=== PATIENT | male | born 1960 | race Two or more races ===

== ENCOUNTER 2020-03-01 08:51 | Inpatient (IN) | payer MEDICAID, OTHER ==
[~2020-03-01] VITALS: Ht 167.6 cm; Wt 91.7 kg
[2020-03-01 09:12] LABS: Basophils # (auto) 0 10 ^3/uL (0-0.2); Basophils % (auto) 0.7 % (0.0-2.0); Eosinophils # (auto) 0.2 10 ^3/uL (0-0.8); Eosinophils % (auto) 2.5 % (0.0-7.0); Hematocrit 34.7 % (41.0-53.0); Hemoglobin 11.6 g/dL (13.5-17.5); Lymphocytes # (auto) 1.2 10 ^3/uL (0.4-5.4); Lymphocytes % (auto) 18.8 % (10.0-50.0); Mean Corpuscular Hemoglobin 28.2 pg (28.0-32.0); Mean Corpuscular Hgb Conc. 33.5 g/dL (32.0-36.0); Mean Corpuscular Volume 84.2 fL (80.0-100.0); Monocytes # (auto) 0.6 10 ^3/uL (0-1.3); Monocytes % (auto) 8.7 % (0.0-12.0); Neutrophils # (auto) 4.5 10 ^3/uL (1.6-8.6); Neutrophils % (auto) 69.3 % (37.0-80.0); Nucleated Red Blood Cells % 0.1 %; Platelet Count (auto) 301 10^3/uL (140-450); Red Blood Cells 4.12 10^6/uL (4.5-5.90); Red Cell Distribution Width 14.3 % (11.8-14.3); White Blood Cell 6.5 10^3/uL (4.4-10.8)
[2020-03-01 09:30] LABS: Albumin 2.7 g/dL (3.4-5.0); Anion Gap 5 (5-15); Blood Urea Nitrogen 24 mg/dL (7-18); Calcium 8.5 mg/dL (8.5-10.1); Carbon Dioxide 24 mmol/L (21-32); Chloride 112 mmol/L (98-107); Glucose 153 mg/dL (74-106); Sodium 141 mmol/L (136-145)
[2020-03-01 09:36] LABS: Alanine Aminotransferase 23 U/L (16-61); Alkaline Phosphatase 103 U/L (45-117); Aspartate Aminotransferase 18 U/L (15-37); BUN/Creatinine Ratio 14.5; Bilirubin, Total 0.3 mg/dL (0.2-1.0); GFR African American 55 mL/min; GFR Non-African American 45 mL/min; Total Protein 6.7 g/dL (6.4-8.2)
[2020-03-01] MEDS ORDERED: cloNIDine HCL 0.1 MG TAB PO ONE (10:00)
[2020-03-01] MEDS ORDERED: LABETALOL HCL 5 MG/ML ML 20ML VIAL IV ONE (10:28)
[2020-03-01] MEDS ORDERED: LABETALOL HCL 5 MG/ML 4ML SYRINGE IV ONE (10:30)
[2020-03-01] MEDS ORDERED: NITROGLYCERIN 0.4 MG SL TAB SL PRN ×3 (12:45→14:00)
[2020-03-01] MEDS ORDERED: MORPHINE SULF INJ 2 MG/ML SYRINGE 1ML IV PRN ×3 (12:45→14:00)
[2020-03-01] MEDS ORDERED: HYDROcodone-ACET 5/325MG TAB PO PRN (14:00)
[2020-03-01] MEDS ORDERED: ALUM & MAG HYDROX-SIMETH LIQ(MAALOX) 30 ML PO PRN (14:00)
[2020-03-01] MEDS ORDERED: ONDANSETRON HCL 4 MG/2 ML VIAL IV PRN (14:00)
[2020-03-01] MEDS ORDERED: DOCUSATE SOD 100 MG CAP PO PRN (14:00)
[2020-03-01] MEDS ORDERED: LORazepam 0.5 MG TAB PO PRN (14:00)
[2020-03-01] MEDS ORDERED: ACETAMINOPHEN 325 MG TAB PO PRN (14:00)
[2020-03-01] MEDS: SODIUM CHLOR 0.9% PF (SALINE LOCK) 10ML VIAL/SYR IV SCH ×2 (14:22→22:00)
[2020-03-01] MEDS ORDERED: LORA1TAB23 PO (14:25)
[2020-03-01] MEDS ORDERED: MET50T PO (14:25)
[2020-03-01] MEDS ORDERED: GABA100C9 PO (14:25)
[2020-03-01] MEDS ORDERED: LEVE500T22 PO (14:25)
[2020-03-01] MEDS ORDERED: INSREG3 SC (14:25)
[2020-03-01] MEDS ORDERED: POTA1TAB61 PO (14:25)
[2020-03-01] MEDS ORDERED: HYDR50TA15 PO (14:25)
[2020-03-01] MEDS ORDERED: LISI40TA PO (14:25)
[2020-03-01] MEDS ORDERED: CLOP75TA41 PO (14:25)
[2020-03-01] MEDS ORDERED: NIFE90TA49 PO (14:25)
[2020-03-01] MEDS ORDERED: TAMS0.4C36 PO (14:25)
[2020-03-01] MEDS ORDERED: ATOR1TAB PO (14:25)
[2020-03-01] MEDS ORDERED: levETIRAcetam 500 MG TAB PO ONE (14:30)
[2020-03-01] MEDS ORDERED: DEXTROSE (50%) 50ML SYRG IV PRN (15:00)
[2020-03-01] MEDS: cefTRIAXone 1GM/50ML D5W 50 ML IV SCH (15:04)
[2020-03-01] MEDS: CLINDAMYCIN 600MG IV 50 ML IV SCH ×2 (15:30→22:00)
[2020-03-01 16:06] LABS: Urine Bacteria NONE SEEN /hpf (None Seen); Urine Blood 1+ /uL (Negative); Urine Mucus FEW (None Seen); Urine Specific Gravity 1.019 (1.001-1.035); Urine Sperm PRESENT /hpf (None Seen); Urine WBC 4 /hpf (0 - 3)
--- NOTE | 2020-03-01 16:57 | NUR ---
SWALLOW EVALUATED. PATIENT HAS NATURAL TEETH UPPER AND LOWER. ABLE TO FOLLOW COMMANDS. PATIENT ABLE TO TOLERATE MECHANICAL SOFT DIET TEXTURE WITH THIN LIQUIDS WITH NO OVERT SIGNS OR SYMPTOMS OF ASPIRATION. NURSING NOTIFIED.
[2020-03-01] MEDS: InsuLIN REG 1unit/0.01ml Soln (100units/ml) SC SCH ×2 (17:05→22:00)
[2020-03-01] MEDS: ACCU-CHEK COMFORT CURVE STRIP VI SCH ×2 (17:06→22:00)
[2020-03-01 17:57] VITALS: BP 191/100
[2020-03-01 18:30] VITALS: BP 191/100
[2020-03-01] MEDS: hydrALAZINE HCL 20 MG/ML VL IV SCH (18:35)
[2020-03-01 19:05] VITALS: BP 150/90
[2020-03-01 19:36] LABS: Partial Thromboplastin Time 26.2 sec (23.64-32.05)
[2020-03-01 19:46] LABS: Cholesterol 162 mg/dL (< 200); HDL Cholesterol 34 mg/dL (40-59); LDL Cholesterol 106 mg/dL (< 100); Phosphorus 4.9 mg/dL (2.5-4.90); Triglycerides 175 mg/dL (< 150)
[2020-03-01 20:00] VITALS: BP 159/90
--- NOTE | 2020-03-01 20:00 | NUR ---
Opening Shift Note Assumed care of patient, awake, AAOx3, reoriented to time. No S/S of distress/SOB or pain. On room air and bedrest. Nobles catheter patent and draining to gravity. Bed in lowest locked position, side rails up x2, call light within reach. Instructed on POC and to call for assist PRN, will continue to monitor for changes Q1hr and PRN.
[2020-03-01] MEDS ORDERED: LORazepam 2MG/ML-1ML VIAL IV PRN (21:15)
[2020-03-01 22:00] VITALS: BP 159/90
[2020-03-01] MEDS: ATORVASTATIN 20 MG TAB PO SCH (22:00)
[2020-03-01] MEDS: METOPROLOL TARTRATE 25 MG TAB PO SCH (22:00)
[2020-03-01] MEDS ORDERED: CARVEDILOL 3.125 MG TAB PO SCH (22:00)
[2020-03-01] MEDS: GABAPENTIN 300 MG CAP PO SCH (22:00)
[2020-03-01] MEDS: levETIRAcetam 500 MG TAB PO SCH (22:00)
[2020-03-02] VITALS (7 sets, daily range): BP systolic 148–193; BP diastolic 77–97
[2020-03-02] MEDS: SODIUM CHLOR 0.9% PF (SALINE LOCK) 10ML VIAL/SYR IV SCH ×3 (05:44→22:29)
[2020-03-02] MEDS: ACCU-CHEK COMFORT CURVE STRIP VI SCH ×4 (05:44→22:29)
[2020-03-02] MEDS: InsuLIN REG 1unit/0.01ml Soln (100units/ml) SC SCH ×4 (05:44→22:33)
[2020-03-02] MEDS: hydrALAZINE HCL 20 MG/ML VL IV SCH ×3 (05:44→12:13)
[2020-03-02] MEDS: GABAPENTIN 300 MG CAP PO SCH ×3 (05:44→22:28)
[2020-03-02] MEDS: CLINDAMYCIN 600MG IV 50 ML IV SCH ×2 (05:44→14:24)
--- NOTE | 2020-03-02 08:06 | NUR ---
OPENING SHIFT NOTE Assumed care of patient. Patient alert and orientated. No sob or distress noted. POC reviewed with pt and verbalized understanding. Bed locked in lowest position. Side rails up x2. Will continue to monitor.
[2020-03-02] MEDS: LOSARTAN POTASSIUM 50 MG TAB PO SCH (10:25)
[2020-03-02] MEDS: METOPROLOL TARTRATE 25 MG TAB PO SCH ×2 (10:26→22:28)
[2020-03-02] MEDS: CLOPIDOGREL BISULFATE 75 MG TAB PO SCH (10:28)
[2020-03-02] MEDS: levETIRAcetam 500 MG TAB PO SCH ×2 (10:29→22:29)
[2020-03-02] MEDS: ENOXAPARIN SOD 40 MG/0.4 ML SYRINGE SC SCH (10:29)
[2020-03-02] MEDS: ASPirin 81 mg TAB PO SCH (10:29)
[2020-03-02] MEDS: cefTRIAXone 1GM/50ML D5W 50 ML IV SCH (10:30)
[2020-03-02] MEDS: CITALOPRAM HYDROBR 20 MG TAB PO SCH (10:30)
[2020-03-02] MEDS ORDERED: NIFEdipine ER 30 MG TAB PO ONE (14:30)
[2020-03-02] MEDS: hydrALAZINE HCL 25 MG TAB PO SCH (18:21)
[2020-03-02] MEDS: ATORVASTATIN 20 MG TAB PO SCH (22:28)
--- NOTE | 2020-03-03 03:40 | NUR ---
ASSUMED CARE ASSUMED CARE OF PATIENT FROM WILL, RN. PATIENT ASLEEP, EVEN UNLABORED RESPIRATIONS. NO S/S OF DISTRESS, SOB OR PAIN NOTED. BED IN LOWEST/LOCKED POSITION, BED RAILS UP X2, CALL LIGHT WITHIN REACH. WILL CONTINUE TO MONITOR
[2020-03-03 05:00] VITALS: BP 130/71
[2020-03-03 05:17] LABS: Potassium 3.9 mmol/L (3.5-5.1)
[2020-03-03 05:21] LABS: BUN/Creatinine Ratio 16.9; Calcium 8.3 mg/dL (8.5-10.1)
[2020-03-03] MEDS: GABAPENTIN 300 MG CAP PO SCH ×2 (05:57→13:23)
[2020-03-03] MEDS: hydrALAZINE HCL 25 MG TAB PO SCH ×3 (05:57→13:21)
[2020-03-03] MEDS: SODIUM CHLOR 0.9% PF (SALINE LOCK) 10ML VIAL/SYR IV SCH ×2 (05:57→13:23)
[2020-03-03] MEDS: InsuLIN REG 1unit/0.01ml Soln (100units/ml) SC SCH ×2 (06:10→11:30)
[2020-03-03] MEDS: ACCU-CHEK COMFORT CURVE STRIP VI SCH ×2 (06:10→11:37)
[2020-03-03 09:00] VITALS: BP 134/74
[2020-03-03] MEDS ORDERED: MIDAZOLAM HCL 1MG/1ML-2 ML VIAL IV ONE (09:45)
[2020-03-03] MEDS ORDERED: NIFEdipine ER 30 MG TAB PO SCH (10:00)
[2020-03-03] MEDS: ENOXAPARIN SOD 40 MG/0.4 ML SYRINGE SC SCH (11:22)
[2020-03-03] MEDS: METOPROLOL TARTRATE 25 MG TAB PO SCH (11:23)
[2020-03-03] MEDS: CLOPIDOGREL BISULFATE 75 MG TAB PO SCH (11:23)
[2020-03-03] MEDS: ASPirin 81 mg TAB PO SCH (11:24)
[2020-03-03] MEDS: LOSARTAN POTASSIUM 50 MG TAB PO SCH (11:24)
[2020-03-03] MEDS: levETIRAcetam 500 MG TAB PO SCH (11:25)
[2020-03-03] MEDS: CITALOPRAM HYDROBR 20 MG TAB PO SCH (11:25)
[2020-03-03 13:00] VITALS: BP_SYST 140; BP_SYST 145; BP_DIAS 64; BP_DIAS 82
--- NOTE | 2020-03-03 16:22 | NUR ---
assessment Patient is a 60 year old male who is alert and oriented. Prior to admission patient lived home with his Lavern and family. Per Lavern patient has a fww and a wheelchair for home use. Patients PCP is Dr Garcia. Patient will return home with family on discharge and Maira will transport him home. I informed Mercedes patient has a ss consult to resume home health. Per Mercedes patient is on service with [facility]. MD order has been [facility]. Per Dana service will resume 03/04/2020. Danny MAURER has been notified as well as Lavern. Lavern verbalized understanding and agreed to discharge plan home. Addendum: 03/03/20 at 1627 by Saray VILLA Amended: Links added.
[2020-03-03 16:58] VITALS: BP 145/64
[2020-03-03 17:00] VITALS: BP 149/57
--- NOTE | 2020-03-03 19:16 | NUR ---
Patient Discharged The patient received the order to be discharged. Prepared him for discharge. Use the translation phone to explain things. Gathered and finalized paperwork, reviewed it with the patient who then signed the discharge paperwork. Escorted the patient out via wheel chair at 1815hrs.
--- NOTE | 2020-03-04 15:02 | NUR ---
re-assessment Per Rachael at [facility] case management auth for Ana Hicks is [id number]. Ana Hicks has been notified. Addendum: 03/04/20 at 1503 by Saray VILLA Amended: Links added.
== END 2020-03-03 18:15 | disposition home health service (06) | DRG 45 ==
LOC: EDBD 08:51 → ER 08:51 → TELE 08:52 → TELE-WESTW 18:16
PROVIDERS: ADMIT Hospitalist; ATTEND Internal Medicine
PROC: B24BZZ4 Ultrasonography of Heart with Aorta, Transesophageal (ICD-10-PCS; principal; 2020-03-03)
DX: I63.81 Other cerebral infarction due to occlusion or stenosis of small artery (principal); F80.2 Mixed receptive-expressive language disorder; F01.50 Vascular dementia, unspecified severity, without behavioral disturbance, psychotic disturbance, mood disturbance, and anxiety; E43 Unspecified severe protein-calorie malnutrition; N40.0 Benign prostatic hyperplasia without lower urinary tract symptoms; E78.5 Hyperlipidemia, unspecified; N18.3 Chronic kidney disease, stage 3 (moderate); E11.319 Type 2 diabetes mellitus with unspecified diabetic retinopathy without macular edema; E11.22 Type 2 diabetes mellitus with diabetic chronic kidney disease; E11.40 Type 2 diabetes mellitus with diabetic neuropathy, unspecified; H54.8 Legal blindness, as defined in USA; I12.9 Hypertensive chronic kidney disease with stage 1 through stage 4 chronic kidney disease, or unspecified chronic kidney disease; G40.909 Epilepsy, unspecified, not intractable, without status epilepticus; F02.80 Dementia in other diseases classified elsewhere, unspecified severity, without behavioral disturbance, psychotic disturbance, mood disturbance, and anxiety; G30.9 Alzheimer's disease, unspecified; I16.1 Hypertensive emergency; I69.354 Hemiplegia and hemiparesis following cerebral infarction affecting left non-dominant side; N17.0 Acute kidney failure with tubular necrosis; I67.4 Hypertensive encephalopathy; J34.1 Cyst and mucocele of nose and nasal sinus; R32 Unspecified urinary incontinence; Z79.02 Long term (current) use of antithrombotics/antiplatelets; Z79.82 Long term (current) use of aspirin; Z79.899 Other long term (current) drug therapy; Z82.49 Family history of ischemic heart disease and other diseases of the circulatory system; Z89.611 Acquired absence of right leg above knee; Z89.511 Acquired absence of right leg below knee; I25.2 Old myocardial infarction; D50.0 Iron deficiency anemia secondary to blood loss (chronic); D63.1 Anemia in chronic kidney disease
CPT/HCPCS: 36415; 70450; 70551; 71045; 80048; 80053; 80061; 81001; 82962; 83036; 83735; 83880; 84100; 84443; 84484; 85025; 85610; 85730; 87040; 87086; 92610; 93005; 93306; 93312; 93886; 96365; 96367; 96375; 99152; G0378; J0696; J1815; J2250; J3490

== ENCOUNTER → 2020-03-25 | Emergency (ER) | payer MEDICAID ==
[~2020-03-25] VITALS: Ht 167.6 cm; Wt 77.1 kg
[~2020-03-25] MED LIST: ATOR1TAB PO; CLOP75TA41 PO; GABA100C9 PO; HYDR50TA15 PO; INSREG3 SC; LEVE500T32 PO; LISI40TA11 PO; LORA1TAB23 PO; MET50T PO; NIFE90TA49 PO; POTA1TAB61 PO; TAMS0.4C36 PO
[2020-03-25 10:10] LABS: Basophils # (auto) 0 10 ^3/uL (0-0.2); Basophils % (auto) 0.6 % (0.0-2.0); Eosinophils # (auto) 0.2 10 ^3/uL (0-0.8); Eosinophils % (auto) 3.5 % (0.0-7.0); Hematocrit 32.8 % (41.0-53.0); Hemoglobin 10.9 g/dL (13.5-17.5); Lymphocytes # (auto) 1.1 10 ^3/uL (0.4-5.4); Lymphocytes % (auto) 18.3 % (10.0-50.0); Mean Corpuscular Hemoglobin 28.3 pg (28.0-32.0); Mean Corpuscular Hgb Conc. 33.3 g/dL (32.0-36.0); Mean Corpuscular Volume 84.8 fL (80.0-100.0); Monocytes # (auto) 0.5 10 ^3/uL (0-1.3); Monocytes % (auto) 7.8 % (0.0-12.0); Neutrophils # (auto) 4.3 10 ^3/uL (1.6-8.6); Neutrophils % (auto) 69.8 % (37.0-80.0); Nucleated Red Blood Cells % 0.1 %; Platelet Count (auto) 292 10^3/uL (140-450); Red Blood Cells 3.87 10^6/uL (4.5-5.90); Red Cell Distribution Width 14.5 % (11.8-14.3); White Blood Cell 6.2 10^3/uL (4.4-10.8)
[2020-03-25 10:26] LABS: Albumin 2.7 g/dL (3.4-5.0); Calcium 8.8 mg/dL (8.5-10.1); Potassium 4.1 mmol/L (3.5-5.1)
[2020-03-25 10:27] LABS: Urine Bacteria NONE SEEN /hpf (None Seen); Urine Blood 1+ /uL (Negative); Urine Specific Gravity 1.009 (1.001-1.035); Urine WBC 100 /hpf (0 - 3); Urine WBC Clumps PRESENT /hpf (None Seen)
[2020-03-25 10:38] LABS: BUN/Creatinine Ratio 14.1; Bilirubin, Total 0.2 mg/dL (0.2-1.0); Total Protein 6.2 g/dL (6.4-8.2)
[2020-03-25 11:00] VITALS: BP 167/98
== END | disposition home or self-care (01) ==
LOC: EDBD 09:06 → ER 09:06 → EDUNIT# 09:06
DX: N39.0 Urinary tract infection, site not specified (principal); I10 Essential (primary) hypertension; E11.65 Type 2 diabetes mellitus with hyperglycemia
CPT/HCPCS: 36415; 71045; 80053; 81001; 85025; 87086; 87088; 87186

== ENCOUNTER 2020-06-10 12:56 | Emergency (ER) | payer MEDICAID ==
[~2020-06-10] VITALS: Ht 167.6 cm; Wt 77.1 kg
[2020-06-10 14:45] LABS: Basophils # (auto) 0.1 10 ^3/uL (0-0.2); Basophils % (auto) 0.8 % (0.0-2.0); Eosinophils # (auto) 0.3 10 ^3/uL (0-0.8); Eosinophils % (auto) 3.7 % (0.0-7.0); Hematocrit 32.6 % (41.0-53.0); Hemoglobin 10.6 g/dL (13.5-17.5); Lymphocytes # (auto) 1.2 10 ^3/uL (0.4-5.4); Lymphocytes % (auto) 16.8 % (10.0-50.0); Mean Corpuscular Hemoglobin 27.7 pg (28.0-32.0); Mean Corpuscular Hgb Conc. 32.6 g/dL (32.0-36.0); Mean Corpuscular Volume 85.1 fL (80.0-100.0); Monocytes # (auto) 0.6 10 ^3/uL (0-1.3); Monocytes % (auto) 8.2 % (0.0-12.0); Neutrophils # (auto) 4.9 10 ^3/uL (1.6-8.6); Neutrophils % (auto) 70.5 % (37.0-80.0); Platelet Count (auto) 336 10^3/uL (140-450); Red Blood Cells 3.83 10^6/uL (4.5-5.90); Red Cell Distribution Width 14.2 % (11.8-14.3); White Blood Cell 6.9 10^3/uL (4.4-10.8)
[2020-06-10 14:57] LABS: Urine Bacteria FEW /hpf (None Seen); Urine Blood TRACE /uL (Negative); Urine Budding Yeast MODERATE /hpf (None Seen); Urine Specific Gravity 1.015 (1.001-1.035); Urine WBC 197 /hpf (0 - 3); Urine WBC Clumps PRESENT /hpf (None Seen)
[2020-06-10 15:01] LABS: Albumin 2.9 g/dL (3.4-5.0); Anion Gap 7 (5-15); Blood Urea Nitrogen 26 mg/dL (7-18); Calcium 8.7 mg/dL (8.5-10.1); Carbon Dioxide 22 mmol/L (21-32); Chloride 112 mmol/L (98-107); Glucose 121 mg/dL (74-106); Potassium 4.3 mmol/L (3.5-5.1); Sodium 141 mmol/L (136-145)
[2020-06-10 15:02] LABS: Alanine Aminotransferase 10 U/L (16-61); Aspartate Aminotransferase 10 U/L (15-37); BUN/Creatinine Ratio 13.5; GFR African American 46 mL/min; GFR Non-African American 38 mL/min
[2020-06-10 15:07] LABS: Alkaline Phosphatase 94 U/L (45-117); Bilirubin, Total 0.2 mg/dL (0.2-1.0); Total Protein 6.8 g/dL (6.4-8.2)
[2020-06-10] MEDS ORDERED: LABETALOL HCL 5 MG/ML 4ML SYRINGE IV ONE ×2 (15:10→15:15)
[2020-06-10 16:08] VITALS: BP 195/96
[2020-06-10] MEDS ORDERED: cefTRIAXone 1GM/50ML D5W 50 ML IV ONE (16:15)
== END 2020-06-10 16:52 | disposition home or self-care (01) ==
LOC: ER 12:56
DX: N45.1 Epididymitis (principal); N39.0 Urinary tract infection, site not specified; E11.22 Type 2 diabetes mellitus with diabetic chronic kidney disease; I12.9 Hypertensive chronic kidney disease with stage 1 through stage 4 chronic kidney disease, or unspecified chronic kidney disease; N18.9 Chronic kidney disease, unspecified
CPT/HCPCS: 36415; 51702; 71045; 76870; 80053; 81001; 84484; 85025; 87086; 87186; 96365; 96375; 99285; J0696; J3490